=== PATIENT | female | born 1965 | race Caucasian/White ===

== ENCOUNTER 2021-01-16 06:07 | Emergency (ER) | payer OTHER ==
[2021-01-16 07:23] LABS: BASOPHIL 0.7 % (0-2); EOSINOPHIL 0.4 % (0-5); HCT 48.2 % (37.0-47.0); HGB 16.5 g/dl (12.5-16.0); LYMPHOCYTE 24.4 % (15-48); MCH 29.4 pg (25.0-31.0); MCHC 34.2 g/dL (32.0-36.0); MCV 85.9 fL (78.0-100.0); MONOCYTE 6.6 % (0-12); MPV 9.4 fL (6.0-9.5); NEUTROPHIL 67.4 % (41-80); NRBC 0; PLT 409 K/uL (150-400); RBC 5.61 M/uL (4.20-5.40); WBC 12.3 K/uL (4.0-10.5)
[2021-01-16 07:27] LABS: INR 1.02 (0.9-1.2); PROTHROMBIN TIME 12.8 SECONDS (11.8-13.4)
[2021-01-16 07:28] LABS: PTT 27.1 SECONDS (24.4-34.7)
[2021-01-16 07:36] LABS: ALBUMIN 3.9 g/dL (3.4-5.0); BILIRUBIN - TOTAL 0.4 mg/dL (0.2-1.0); BUN/CREAT RATIO (CALC) 12.7 RATIO; CREATININE 0.79 mg/dL (0.51-0.95); GLOBULIN (CALCULATION) 4.1 g/dL; POTASSIUM 3.6 mmol/L (3.5-5.1)
[2021-01-16 07:45] LABS: BILIRUBIN NEGATIVE (NEGATIVE); BLOOD 1+ Ery/uL (NEGATIVE); CLARITY CLEAR (CLEAR); COLOR YELLOW (YELLOW); GLUCOSE (U) NORMAL (NORMAL); LEUKOCYTES NEGATIVE Leu/uL (NEGATIVE); NITRITE NEGATIVE (NEGATIVE); PROTEIN NEGATIVE (NEGATIVE); UROBILINOGEN 0.2 mg/dL (0.2-1.0)
[2021-01-16 07:58] LABS: BACTERIA TRACE; URINARY RBC RARE
[2021-01-16] MEDS ORDERED: COZAAR50 MG PO (09:58)
== END 2021-01-16 10:36 | disposition home or self-care (01) ==
LOC: FER 06:07
PROVIDERS: Emergency Medicine
DX: G43.909 Migraine, unspecified, not intractable, without status migrainosus (principal); I10 Essential (primary) hypertension; F17.200 Nicotine dependence, unspecified, uncomplicated; Z88.0 Allergy status to penicillin; Z79.899 Other long term (current) drug therapy
CPT/HCPCS: 36415; 70450; 80053; 81001; 84484; 85025; 85610; 85730; 93005; J1200; J1885; J2405; J3490; J7030